=== PATIENT | male | born 1995 | race African-American/Black ===

== ENCOUNTER 2020-05-09 20:32 | Emergency (ER) | payer OTHER ==
[~2020-05-09] VITALS: Ht 193 cm; Wt 109.0 kg
--- NOTE | 2020-05-09 20:47 | PHYS DOC ---
General Adult EDM: Chief Complaint: FOOT INJURY PAIN HPI: HPI: ".. I ve had foot problems..and had surgery on both feet.. the Rt one was done last 6 months ago.. I am a [employer] at the [employer].. but I bumped it on a table.. and now it is really hurting.... " Patient is a 25 year old male who presents with above hx and Rt. foot injury while at work. Patient has had bilateral first toe surgeries for removal of bunions and placement of hardware. Most recent surgery is on the right first toe 6 months ago. Distal neurovascular is equal to other toes. Foot squeeze exacerbates pain. Patient denies any recent travel outside the [facility]. Patient denies any severe ill contacts. Patient is up-to-date with vaccinations. Review of Systems: Review of Systems: Constitutional: Denies fever or chills Eyes: Denies change in visual acuity HENT: Denies nasal congestion or sore throat Respiratory: Denies cough or shortness of breath Cardiovascular: Denies chest pain or edema GI: Denies abdominal pain, nausea, vomiting, bloody stools or diarrhea : Denies dysuria Musculoskeletal: Denies back pain or joint pain Integument: Denies rash Neurologic: Denies headache, focal weakness or sensory changes Endocrine: Denies polyuria or polydipsia Lymphatic: Denies swollen glands Psychiatric: Denies depression or anxiety Heart Score: Risk Factors: Risk Factors: DM, Current or recent (<one month) smoker, HTN, HLP, family history of CAD, obesity. Risk Scores: Score 0 - 3: 2.5% MACE over next 6 weeks - Discharge Home Score 4 - 6: 20.3% MACE over next 6 weeks - Admit for Clinical Observation Score 7 - 10: 72.7% MACE over next 6 weeks - Early Invasive Strategies Family History: Family History: Noncontributory Current Medications: Current Meds: See nursing for home medications Allergies: Allergies: No known drug allergies Physical Exam: PE: Constitutional: Well developed, well nourished, moderate acute distress, non-to xic appearance. [] HENT: Normocephalic, atraumatic, bilateral external ears normal, oropharynx moist, no oral exudates, nose normal. [] Eyes: PERRLA, EOMI, conjunctiva normal, no discharge. [] Neck: Normal range of motion, no tenderness, supple, no stridor. [] Cardiovascular:Heart rate regular rhythm, no murmur [] Lungs & Thorax: Bilateral breath sounds equal at apex auscultation [] Abdomen: Bowel sounds normal, soft, no tenderness, no masses, no pulsatile masses. [] Skin: Warm, dry, no erythema, no rash. [] Back: No tenderness, no CVA tenderness. [] Extremities: Bilateral foot tenderness at surgery scars. Primary area of pain in Rt. foot area.of prior surgery., no cyanosis, no clubbing, ROM intact, no edema. [] Neurologic: Alert and oriented X 3, normal motor function, normal sensory function, no focal deficits noted. [] Psychologic: Affect normal, judgement normal, mood normal. [] EKG: EKG: [] Radiology/Procedures: Radiology/Procedures: [][place] [address] IMAGING REPORT Signed PATIENT: CHAPARRO MARIE ACCOUNT: [id number] : 1995 LOCATION: ER AGE: 25 SEX: M EXAM STATUS: PRE ER ORD. PHYSICIAN: MOUNA VALIENTE MD REASON: injury, H/O SURGERY 6-7 MONTHS AGO PROCEDURE: FOOT RIGHT 3V FOOT RIGHT 3V Clinical Indication: Reason: injury, H/O SURGERY 6-7 MONTHS AGO / Spl. Instructions: / History: Comparison: None. Findings: There is a metallic staple in the proximal phalanx of the great toe. There is probable healed osteotomy. There is a cancellous screw of the distal first metatarsal. There is healed osteotomy. The threads of the tip of the screw are slightly proud of the cortical bone inferiorly. Mild joint space narrowing and marginal osteophyte formation first MTP. No acute fracture. Mineralization is normal. Other joint spaces are maintained. No soft tissue abnormality. IMPRESSION: 1. No acute bone abnormality. 2. Postsurgical changes of the great toe. Electronically signed by: Braxton Lennon MD (05/09/2020 9:40 PM) [facility] DICTATED AND SIGNED BY: BRAXTON LENNON MD DATE: 05/09/202139 CC: MOUNA VALIENTE MD; NON,STAFF ~ Course & Med Decision Making: Course & Med Decision Making Pertinent Labs and Imaging studies reviewed. (See chart for details) Wear a stiff shoe. Ice packs as needed. Elevation. Rest. Take Tylenol and ibuprofen for pain. For marked pain may take Vicoprofen. Follow-up with Her[facility]. Keep follow-up for repeat surgery on left foot. Impression: 1. Rt. Foot Contusion 2. Post Surgical Changes-right and left foot [] Dragon Disclaimer: Dragon Disclaimer: This electronic medical record was generated, in whole or in part, using a voice recognition dictation system. Departure Departure: Disposition: 01 DC HOME SELF CARE/HOMELESS Condition: STABLE Referrals: NON,STAFF (PCP) Scripts Hydrocodone/Ibuprofen (HYDROCODONE-IBUPROFEN 7.5-200 ) 1 Each Tablet 1 TAB PO PRN Q6HRS PRN for PAIN, #30 TAB 0 Refills Prov: MOUNA VALIENTE MD 05/09/20 Dragon Disclaimer This chart was dictated in whole or in part using Voice Recognition software in a busy, high-work load, and often noisy Emergency Department environment. It may contain unintended and wholly unrecognized errors or omissions. MOUNA VALIENTE MD May 09, 2020 20:47
[2020-05-09 20:53] VITALS: BP 132/56
--- NOTE | 2020-05-09 21:42 | RAD ---
FOOT RIGHT 3V Clinical Indication: Reason: injury, H/O SURGERY 6-7 MONTHS AGO / Spl. Instructions: / History: Comparison: None. Findings: There is a metallic staple in the proximal phalanx of the great toe. There is probable healed osteotomy. There is a cancellous screw of the distal first metatarsal. There is healed osteotomy. The threads of the tip of the screw are slightly proud of the cortical bone inferiorly. Mild joint space narrowing and marginal osteophyte formation first MTP. No acute fracture. Mineralization is normal. Other joint spaces are maintained. No soft tissue abnormality. IMPRESSION: 1. No acute bone abnormality. 2. Postsurgical changes of the great toe. Electronically signed by: Braxton Moran MD (05/09/2020 9:40 PM) [facility]
[2020-05-09] MEDS ORDERED: HYDROcodon/IBUPROFEN 7.5/200MG 1 TAB TABLET PO ONE (22:00)
[2020-05-09] MEDS ORDERED: HYDR-1179 PO (22:09)
== END 2020-05-09 22:15 | disposition home or self-care (01) ==
LOC: ER 20:32
DX: S90.31XA Contusion of right foot, initial encounter (principal); Z98.890 Other specified postprocedural states; W22.03XA Walked into furniture, initial encounter; Y93.89 Activity, other specified; Y92.89 Other specified places as the place of occurrence of the external cause; Y99.0 Civilian activity done for income or pay
CPT/HCPCS: 73630; 99283

== ENCOUNTER 2020-05-27 07:50 | Emergency (ER) | payer OTHER ==
[~2020-05-27] VITALS: Ht 190.5 cm; Wt 104.5 kg
[~2020-05-27 07:50] MED LIST: HYDR-1179 PO
[2020-05-27 07:52] VITALS: BP 143/76
[2020-05-27] MEDS ORDERED: HYDROcodone/APAP 5/325MG 1 TAB TABLET PO ONE (09:00)
[2020-05-27] MEDS ORDERED: NAPR500T8 PO (09:00)
--- NOTE | 2020-05-27 09:01 | PHYS DOC ---
Past History Past Medical History: No Pertinent History Past Surgical History: Other Additional Past Surgical Histo: Bilateral foot surgeries Alcohol Use: None Adult General Chief Complaint Chief Complaint: FOOT INJURY PAIN HPI HPI Patient is a 25-year-old male who presents for bilateral foot pain. Patient reports having bunion surgery on left foot December 2018 and subsequent bunion surgery on right foot June 2019. He has had chronic pain since. He has seen his primary care physician for this and advised continue supportive care with ibuprofen use as needed for pain. He has been doing this without any relief. He has not tried Tylenol. No fever chills or other concerning symptoms of potential infection. Coming here for pain management today. He is following up with his primary care physician next week for this issue Review of Systems Review of Systems Fourteen body systems of review of systems have been reviewed. See HPI for pertinent positives and negative responses, other almaraz all other systems are negative, non-pertinent or non-contributory Allergies Allergies Allergies Coded Allergies Type Severity Reaction Last Updated Verified No Known Drug Allergies 05/09/20 No Physical Exam Physical Exam Constitutional: Well developed, well nourished, no acute distress, non-toxic appearance. HENT: Normocephalic, atraumatic, bilateral external ears normal, oropharynx moist, no oral exudates, nose normal. Eyes: PERRLA, EOMI, conjunctiva normal, no discharge. Neck: Normal range of motion, no tenderness, supple, no stridor. Cardiovascular: Heart rate regular, sinus rhythm, no murmurs rubs or gallops Lungs & Thorax: Bilateral breath sounds clear to auscultation Abdomen: Bowel sounds normal, soft, no tenderness, no masses, no pulsatile masses. Nonsurgical abdomen, no peritoneal signs Skin: Warm, dry, no erythema, no rash. Back: No tenderness, no CVA tenderness. Extremities: No cyanosis, no clubbing, ROM intact, no edema. Tenderness palpation over bilateral balls of feet. Well-healed surgical incision consistent with bunion surgery on bilateral feet. No swelling, edema, ecchy mosis, crepitus or other concerning visual and/or palpable abnormalities Neurologic: Alert and oriented X 3, grossly normal motor & sensory function, no focal deficits noted. Psychologic: Affect normal, judgement normal, mood normal. Current Patient Data Vital Signs Vital Signs Date Time Temp Pulse Resp B/P (MAP) Pulse Ox O2 Delivery O2 Flow Rate FiO2 10/28/20 07:52 98.3 54 16 143/76 (98) 100 Room Air EKG EKG [] Radiology/Procedures Radiology/Procedures [] Heart Score Risk Factors: Risk Factors: DM, Current or recent (<one month) smoker, HTN, HLP, family history of CAD, obesity. Risk Scores: Risk Factors: DM, Current or recent (<one month) smoker, HTN, HLP, family history of CAD, obesity. Course & Med Decision Making Course & Med Decision Making Pertinent Labs and Imaging studies reviewed. (See chart for details) Chronic bilateral bunion pain without any obvious surgical and/or emergent findings today. Patient wanting pain medication and time off work. 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 Strict return precautions discussed with good understanding by patient, all questions and concerns addressed prior to ER departure in stable condition Ember Disclaimer Ember Disclaimer This electronic medical record was generated, in whole or in part, using a voice recognition dictation system. Departure Departure: Impression: Primary Impression: Bilateral foot pain Disposition: 01 DC HOME SELF CARE/HOMELESS Condition: STABLE Referrals: KIRILL SALAS (PCP) Patient Instructions: Bunion (Hallux Valgus)-SportsMed, Bunionectomy, Care After Additional Instructions: As discussed prior to ER departure, please follow-up with your outpatient primary care physician to discuss next steps in care for your chronic bilateral foot pain Continue to take Tylenol and prescribed medication for pain. Utilize ice as needed. If any concerning signs or symptoms present prior to outpatient follow-up please do not hesitate to come back for repeat evaluation It was a pleasure to take care of you and I wish you a speedy recovery Scripts Naproxen (NAPROXEN) 500 Mg Tablet.dr 1 TAB PO BID for SEVERE PAIN, #30 TAB 2 Refills Prov: JAIRON ROSAS DO 05/27/20 JAIRON ROSAS DO May 27, 2020 09:01
== END 2020-05-27 09:05 | disposition home or self-care (01) ==
LOC: ER 07:50
DX: M79.672 Pain in left foot (principal); M79.671 Pain in right foot; G89.29 Other chronic pain
CPT/HCPCS: 99282

== ENCOUNTER 2020-06-07 12:50 | Emergency (ER) | payer OTHER ==
[~2020-06-07] VITALS: Ht 190.5 cm; Wt 104.5 kg
[~2020-06-07 12:50] MED LIST changes: +NAPR500T8 PO
[2020-06-07] MEDS ORDERED: IV NORMAL SALINE 1,000ML 1,000 ML IV SCH (12:58)
--- NOTE | 2020-06-07 13:34 | RAD ---
PORTABLE CHEST 1V History: Reason: CP / Spl. Instructions: / History: Comparison: None. Findings: No consolidation or pleural effusion. Normal heart size. No pneumothorax. Impression: 1. No acute cardiopulmonary process. Electronically signed by: Eric Card DO (06/07/2020 1:31 PM) [facility]
[2020-06-07 13:43] LABS: BASO # 0.1 x10^3/uL (0.0-0.2); BASO % 1 % (0-3); EOS # 0.2 x10^3/uL (0.0-0.7); EOS % 3 % (0-3); HEMOGLOBIN 13.5 g/dL (13.0-17.5); LYMPH # 0.9 x10^3/uL (1.0-4.8); LYMPH % 19 % (24-48); MEAN CORPUSCULAR HEMOGLOBIN 23 pg (25-35); MEAN CORPUSCULAR HGB CONC 31 g/dL (31-37); MEAN CORPUSCULAR VOLUME 74 fL (79-100); MONO # 0.6 x10^3/uL (0.0-1.1); MONO % 13 % (0-9); NEUT # 3.1 x10^3uL (1.8-7.7); NEUT % 64 % (31-73); PLATELET COUNT 235 x10^3/uL (140-400); RED BLOOD COUNT 5.79 x10^6/uL (4.30-5.70); RED CELL DISTRIBUTION WIDTH 13.6 % (11.5-14.5); WHITE BLOOD COUNT 4.8 x10^3/uL (4.0-11.0)
[2020-06-07 13:50] LABS: CALCIUM 9.9 mg/dL (8.5-10.1); CREATININE 1.6 mg/dL (0.7-1.3); POTASSIUM 3.3 mmol/L (3.5-5.1)
[2020-06-07 14:04] LABS: ALBUMIN 4.1 g/dL (3.4-5.0); ALBUMIN/GLOBULIN RATIO 0.9 (1.0-1.7); TOTAL BILIRUBIN 0.7 mg/dL (0.2-1.0); TOTAL PROTEIN 8.5 g/dL (6.4-8.2)
--- NOTE | 2020-06-07 14:35 | RAD ---
US CHEST History:Reason: sternal mass, new onset / Spl. Instructions: / History: Comparison: None Technique: Sonographic examination of the right clavicular subcutaneous tissues. Findings: Ultrasound evaluation of the right periclavicular subcutaneous tissues and upper chest wall demonstrates no mass or fluid collection to correspond with patient's palpable abnormality. Impression: 1. No ultrasound evidence of abnormality within the region of the patient's concern. Recommend continued clinical follow-up. Electronically signed by: Eric Card DO (06/07/2020 2:33 PM) [facility]
--- NOTE | 2020-06-07 14:57 | EKG ---
[address] [address] Test Date: 2020-06-07 Test Time: 13:07:53 Pat Name: CHAPARRO MARIE Department: Room: Gender: M Orchard Pruner: MARGARITO : 1995 Requested By: VIVEK OLIVA Order Number: [id number] Reading MD: Measurements Intervals [place] Rate: 105 P: 83 MA: 178 QRS: 30 QRSD: 82 T: 24 QT: 322 QTc: 429 Interpretive Statements SINUS TACHYCARDIA OTHERWISE NORMAL ECG RI6.02 No previous ECG available for comparison
[2020-06-07 15:07] LABS: BARBITURATES NEG (NEG); BENZODIAZEPINES NEG (NEG); CANNABINOIDS NEG (NEG); COCAINE NEG (NEG); METHADONE NEG (NEG); OPIATES NEG (NEG); PHENCYCLIDINE NEG (NEG)
--- NOTE | 2020-06-07 15:07 | PHYS DOC ---
Past History Past Medical History: No Pertinent History Past Surgical History: Other Additional Past Surgical Histo: Bilateral foot surgeries Alcohol Use: None General Adult EDM: Chief Complaint: CHEST WALL PAIN HPI: HPI: 25-year-old male presents with upper chest wall mass. Patient got off of work and noticed that he had a palpable mass just above his medial clavicle. It is tender to palpation. Patient denies any trauma to this area. He cannot think of anything that would have caused it. He is wants to make sure it is nothing to be worried about. He denies fever or chills. Review of Systems: Review of Systems: Constitutional: Denies fever or chills Eyes: Denies change in visual acuity HENT: Denies nasal congestion or sore throat Respiratory: Denies cough or shortness of breath Cardiovascular: Denies chest pain or edema GI: Denies abdominal pain, nausea, vomiting, bloody stools or diarrhea : Denies dysuria Musculoskeletal: Denies back pain or joint pain Integument: Palpable mass right upper chest Neurologic: Denies headache, focal weakness or sensory changes Endocrine: Denies polyuria or polydipsia Lymphatic: Denies swollen glands Psychiatric: Denies depression or anxiety Current Medications: Current Meds: Current Medications Medications (Trade) Dose Ordered Sig/Amira Start Time Stop Time Status Last Admin Dose Admin Sodium Chloride 1,000 ml @ 1,000 mls/hr Q1H 06/07/20 12:58 06/07/20 13:57 DC 06/07/20 12:58 1,000 MLS/HR Allergies: Allergies: Allergies Coded Allergies Type Severity Reaction Last Updated Verified No Known Drug Allergies 05/09/20 No Physical Exam: PE: Constitutional: Well developed, well nourished, no acute distress, non-toxic appearance. [] HENT: Normocephalic, atraumatic, bilateral external ears normal, oropharynx moist, no oral exudates, nose normal. [] Eyes: PERRLA, EOMI, conjunctiva normal, no discharge. [] Neck: Normal range of motion, no tenderness, supple, no stridor. [] Cardiovascular:Heart rate regular rhythm, no murmur [] Lungs & Thorax: Bilateral breath sounds clear to auscultation [] Abdomen: Bowel sounds normal, soft, no tenderness, no masses, no pulsatile masses. [] Skin: 4 cm round palpable tissue mass of the right chest just lateral to the sternum. Mild tenderness with palpation. No redness or warmth to the touch. [] Back: No tenderness, no CVA tenderness. [] Extremities: No tenderness, no cyanosis, no clubbing, ROM intact, no edema. [] Neurologic: Alert and oriented X 3, normal motor function, normal sensory function, no focal deficits noted. [] Psychologic: Affect normal, judgement normal, mood normal. [] Current Patient Data: Labs: Laboratory Tests Test 06/07/20 13:15 White Blood Count 4.8 x10^3/uL (4.0-11.0) Red Blood Count 5.79 x10^6/uL (4.30-5.70) H Hemoglobin 13.5 g/dL (13.0-17.5) Hematocrit 43.0 % (39.0-53.0) Mean Corpuscular Volume 74 fL (79-100) L Mean Corpuscular Hemoglobin 23 pg (25-35) L Mean Corpuscular Hemoglobin Concent 31 g/dL (31-37) Red Cell Distribution Width 13.6 % (11.5-14.5) Platelet Count 235 x10^3/uL (140-400) Neutrophils (%) (Auto) 64 % (31-73) Lymphocytes (%) (Auto) 19 % (24-48) L Monocytes (%) (Auto) 13 % (0-9) H Eosinophils (%) (Auto) 3 % (0-3) Basophils (%) (Auto) 1 % (0-3) Neutrophils # (Auto) 3.1 x10^3uL (1.8-7.7) Lymphocytes # (Auto) 0.9 x10^3/uL (1.0-4.8) L Monocytes # (Auto) 0.6 x10^3/uL (0.0-1.1) Eosinophils # (Auto) 0.2 x10^3/uL (0.0-0.7) Basophils # (Auto) 0.1 x10^3/uL (0.0-0.2) Sodium Level 139 mmol/L (136-145) Potassium Level 3.3 mmol/L (3.5-5.1) L Chloride Level 102 mmol/L (98-107) Carbon Dioxide Level 25 mmol/L (21-32) Anion Gap 12 (6-14) Blood Urea Nitrogen 10 mg/dL (8-26) Creatinine 1.6 mg/dL (0.7-1.3) H Estimated GFR (Cockcroft-Gault) 64.0 BUN/Creatinine Ratio 6 (6-20) Glucose Level 150 mg/dL (70-99) H Calcium Level 9.9 mg/dL (8.5-10.1) Total Bilirubin 0.7 mg/dL (0.2-1.0) Aspartate Amino Transferase (AST) 39 U/L (15-37) H Alanine Aminotransferase (ALT) 46 U/L (16-63) Alkaline Phosphatase 64 U/L (46-116) Troponin I Quantitative < 0.017 ng/mL (0-0.055) Total Protein 8.5 g/dL (6.4-8.2) H Albumin 4.1 g/dL (3.4-5.0) Albumin/Globulin Ratio 0.9 (1.0-1.7) L Vital Signs: Vital Signs Date Time Temp Pulse Resp B/P (MAP) Pulse Ox O2 Delivery O2 Flow Rate FiO2 06/07/20 12:56 98.0 99 14 132/78 (96) 98 Room Air EKG: EKG: [] Radiology/Procedures: Radiology/Procedures: [] Impressions: PORTABLE CHEST 1V History: Reason: CP / Spl. Instructions: / History: Comparison: None. Findings: No consolidation or pleural effusion. Normal heart size. No pneumothorax. Impression: 1. No acute cardiopulmonary process. Electronically signed by: Eric Crow DO (06/07/2020 1:31 PM) [facility] DICTATED AND SIGNED BY: ERIC CROW DO DATE: 06/07/20 1331 CC: VIVEK OLIVA DO; KIRILL SALAS US CHEST History:Reason: sternal mass, new onset / Spl. Instructions: / History: Comparison: None Technique: Sonographic examination of the right clavicular subcutaneous tissues. Findings: Ultrasound evaluation of the right periclavicular subcutaneous tissues and upper chest wall demonstrates no mass or fluid collection to correspond with patient's palpable abnormality. Impression: 1. No ultrasound evidence of abnormality within the region of the patient's concern. Recommend continued clinical follow-up. Electronically signed by: Eric Crow DO (06/07/2020 2:33 PM) [facility] DICTATED AND SIGNED BY: ERIC CROW DO DATE: 06/07/20 1431 CC: VIVEK OLIVA DO; KIRILL SALAS ~ Heart Score: Risk Factors: Risk Factors: DM, Current or recent (<one month) smoker, HTN, HLP, family history of CAD, obesity. Risk Scores: Score 0 - 3: 2.5% MACE over next 6 weeks - Discharge Home Score 4 - 6: 20.3% MACE over next 6 weeks - Admit for Clinical Observation Score 7 - 10: 72.7% MACE over next 6 weeks - Early Invasive Strategies Course & Med Decision Making: Course & Med Decision Making Pertinent Labs and Imaging studies reviewed. (See chart for details) The patient chest x-ray is negative for acute findings. His ultrasound does not show a mass in the area of concern. It appears to just be a bulging of the soft tissue. His labs are unremarkable except for an elevated creatinine of 1.6. I advised that he follow-up on this with his primary care physician. He is stable for discharge at this time. [] Dragon Disclaimer: Dragon Disclaimer: This electronic medical record was generated, in whole or in part, using a voice recognition dictation system. Departure Departure: Impression: Primary Impression: Mass of chest wall, right Additional Impression: Elevated serum creatinine Disposition: 01 DC HOME SELF CARE/HOMELESS Condition: STABLE Referrals: KIRILL SALAS (PCP) Patient Instructions: Chest Wall Pain, [id number], Creatinine, Blood (Serum Creatinine) VIVEK OLIVA DO Jun 07, 2020 15:07
[2020-06-07 15:08] LABS: AMPHETAMINE/METHAMPHETAMINE NEG (NEG)
[2020-06-07 15:15] VITALS: BP 154/78
[2020-06-07 15:24] LABS: CLARITY,URINE CLEAR; COLOR,URINE YELLOW
[2020-06-07 15:25] LABS: BACTERIA,URINE 0 /HPF (0-FEW); BILIRUBIN,URINE NEG (NEG); GLUCOSE,URINE NEG (NEG); NITRITE,URINE NEG (NEG); RBC,URINE 0 /HPF (0-2); SQUAMOUS EPITHELIAL CELL,UR FEW /LPF; WBC,URINE 0 /HPF (0-4)
== END 2020-06-07 15:12 | disposition home or self-care (01) ==
LOC: ER 12:50
DX: R22.2 Localized swelling, mass and lump, trunk (principal); R79.89 Other specified abnormal findings of blood chemistry
CPT/HCPCS: 36415; 71045; 76604; 80053; 80307; 81001; 84484; 85025; 93005; 96360; 99285; J7030